=== PATIENT | female | born 1945 | race Hispanic/Latino ===

== ENCOUNTER 2021-09-09 14:11 | Outpatient (CLI) | payer MEDICARE ==
--- NOTE | 2021-09-09 15:43 | XRay Report ---
Thoracic spine, 3 views Lumbar spine, 3 views HISTORY: Back pain COMPARISON: None FINDINGS: Bones/joints: Moderate dextroscoliosis with apex at the thoracolumbar junction. There is compensatory left convex curvature of the lumbar spine with apex at L3. Evaluation of vertebral body height is li mited due to spinal curvature. No definite vertebral body height loss. Posterior vertebral alignment is preserved. Mild/moderate multilevel thoracolumbar degenerative disc disease. Soft tissues/other: Aortoiliac stent graft. Visualized lungs are clear. IMPRESSION: S-shaped scoliotic curvature of the thoracolumbar spine with mild to moderate multilevel thoracolumbar spondylosis. No definite acute abnormality. Signer Name: Liborio Kam MD Signed: 09/09/2021 3:39 PM Workstation Name: [id number] [id number]
== END 2021-09-09 14:12 | disposition home or self-care (01) ==
LOC: SPVIMAG 14:11
PROVIDERS: ATTEND Internal Medicine
DX: M47.815 Spondylosis without myelopathy or radiculopathy, thoracolumbar region (principal); M41.85 Other forms of scoliosis, thoracolumbar region
CPT/HCPCS: 72072; 72100

== ENCOUNTER 2022-07-10 15:53 | Emergency (ER) | payer MEDICARE ==
--- NOTE | 2022-07-10 17:27 | Event Note ---
Date: 07/10/22 Medical screening examination note The patient is a 77-year-old female who was brought to the hospital by EMS with an EMS articulated complaint of painless palpitations. EMS reports that they believe the prehospital EKG shows premature atrial contractions. EMS reports unremarkable vital signs in the field. The patient denies physical pain. The patient is ambulatory in the field. EMS reports unremarkable vital signs. Obtain EKG, appropriate laboratory studies. Detailed history and physical to be performed by myself or oncoming ER provider. Patient awake and alert, oriented, not encephalopathic, mildly anxious, but does not appear to be in any acute distress Vital Signs 07/10/22 16:10 Temperature 97.3 F L Pulse Rate 72 Respiratory 18 Rate Blood Pressure 140/80 [Left] O2 Sat by Pulse 97 Oximetry
[2022-07-10] MEDS ORDERED: MIDAZOLAM 2 MG/2 ML INJ IV ONE (18:18)
--- NOTE | 2022-07-10 18:19 | Emergency Department Report ---
ED General Adult HPI - General Chief complaint: Arrhythmia/Palpitations Stated complaint: PALPITATIONS Time Seen by Provider: 07/10/22 18:11 Source: patient, EMS ( EMS documentation not available at time of chart dictation . Verbal report received from emergency medical services), RN notes reviewed Mode of arrival: Stretcher Limitations: No Limitations - History of Present Illness Initial comments: The patient was evaluated in the emergency department for symptoms described in the history of present illness. He/she was evaluated in the context of the global COVID-19 pandemic, which necessitated consideration that the patient might be at risk for infection with the virus that causes COVID-19. Institutional protocols and algorithms that pertain to the evaluation of patients at risk for COVID-19 are in a state of rapid change based on informat ion released by regulatory bodies including the CDC and federal and state organizations. These policies and algorithms were followed during the patient's care in the emergency department. Please note that these policies, procedures and recommendations changed on a rapid basis. Cardiology: Dr. Song This is a pleasant and cooperative 77-year-old female with a history of known CAD, arrhythmia, hyperlipidemia, hypothyroidism, status post cardiac catheterization in 2013 with an EF of 50 to 55%. The patient presents to the department today with a complaint of anxiety, nervous, shaking, and sensation of intermittent heart racing. She is not having physical pain. The symptoms have been going on for a few weeks. She reports having had outpatient laboratory studies drawn, which demonstrated a potassium of 6.0, and she stated that her oil burner repairer started her on a water pill. She had repeat laboratory studies drawn, which demonstrated a potassium of 5.8. She currently denies headache, neck pain, chest pain, abdominal pain, shortness of breath, nausea, vomiting, diarrhea and dysuria. She denies focal extremity weakness and numbness. She reports that she is very anxious and jittery. An outpatient physician recently started her on benzodiazepines for presumed anxiety. -: week(s) Severity scale (0 -10): 0 Consistency: intermittent Improves with: none Worsens with: none Associated Symptoms: denies other symptoms - Related Data Home Medications Medication Instructions Recorded Confirmed Last Taken Atorvastatin Calcium [Lipitor] 20 mg PO QHS 11/05/13 06/16/14 06/15/14 10 mg Levothyroxine Sodium [Synthroid] 50 mcg PO DAILY 0106/16/14 06/16/14 Clopidogrel Bisulfate [Plavix] 75 mg PO DAILY 05/21/14 06/16/14 06/15/14 Previous Rx's Medication Instructions Recorded Last Taken Type carvediloL [Coreg] 3.125 mg PO BID #60 tablet 10/21/13 06/15/14 Rx ALPRAZolam [Xanax TAB] 0.5 mg PO BID PRN #10 tab 05/21/14 06/14/14 Rx ISOSORBIDE MONOnitrate [Imdur] 30 mg PO QDAY #30 tab.er.24h 06/17/14 Unknown Rx Allergies Allergy/AdvReac Type Severity Reaction Status Date / Time dipyridamole Allergy Unknown Verified 06/16/14 09:09 lansoprazole [From Prevacid] Allergy Hives Verified 06/16/14 09:09 meclizine Allergy Unknown Verified 06/16/14 09:09 meclizine HCl [From Antivert] Allergy Shortness Verified 06/16/14 09:09 of Breath Penicillins Allergy Hives Verified 06/16/14 09:09 Proton Pump Inhibitors Allergy Unknown Verified 06/16/14 09:09 Sulfa (Sulfonamide Allergy Hives Verified 06/16/14 09:09 Antibiotics) Tetanus Vaccines and Toxoid Allergy Shortness Verified 06/16/14 09:09 [Tetanus Vaccines & Toxoid] of Breath Tetracyclines Allergy Hives Verified 06/16/14 09:09 aminophylline AdvReac Unknown Verified 06/16/14 09:09 thallium-201 [Thallium-201] AdvReac Unknown Verified 06/16/14 09:09 clams Allergy Hives Uncoded 11/05/13 07:12 ED Review of Systems ROS: Stated complaint: PALPITATIONS Other details as noted in HPI Comment: All other systems reviewed and negative Cardiovascular: palpitations. denies: chest pain Neurological: denies: weakness Psychiatric: anxiety ED Past Medical Hx - Past Medical History Hx Hypertension: No Hx Heart Attack/AMI: Yes (September 2013) Hx Congestive Heart Failure: No Hx Diabetes: No Hx Deep Vein Thrombosis: No Hx Pulmonary Embolism: No Hx Liver Disease: No Hx Renal Disease: No Hx Sickle Cell Disease: No Hx Arthritis: Yes Hx Kidney Stones: Yes Hx Asthma: No Hx COPD: No Hx Tuberculosis: No Hx HIV: No Additional medical history: Mitral Valve Prolapse, Arrhythmia, hypothyroid, high cholesterol, osteoporosis. ECHO October 2013 - Surgical History Hx Coronary Stent: No Hx Open Heart Surgery: No Hx Pacemaker: No Hx Internal Defibrillator: No Hx Cholecystectomy: No Hx Appendectomy: No Hx Breast Surgery: No Additional Surgical History: Lump removed from Left chest, tonsils removed - Social History Smoking Status: Never Smoker - Medications Home Medications: Home Medications Medication Instructions Recorded Confirmed Last Taken Type carvediloL [Coreg] 3.125 mg PO BID #60 tablet 10/21/13 06/16/14 06/15/14 Rx Atorvastatin Calcium [Lipitor] 20 mg PO QHS 11/05/13 06/16/14 06/15/14 History 10 mg Levothyroxine Sodium [Synthroid] 50 mcg PO DAILY 11/05/13 06/16/14 06/16/14 History ALPRAZolam [Xanax TAB] 0.5 mg PO BID PRN #10 tab 05/21/14 06/16/14 06/14/14 Rx Clopidogrel Bisulfate [Plavix] 75 mg PO DAILY 05/21/14 06/16/14 06/15/14 History ISOSORBIDE MONOnitrate [Imdur] 30 mg PO QDAY #30 tab.er.24h 06/17/14 Unknown Rx ED Physical Exam - General Limitations: No Limitations General appearance: alert, anxious - Head Head exam: Present: atraumatic, normocephalic - Eye Eye exam: Present: normal appearance, EOMI. Absent: nystagmus - ENT ENT exam: Present: normal exam, normal orophraynx, mucous membranes moist, normal external ear exam - Neck Neck exam: Present: normal inspection, full ROM. Absent: tenderness, meningismus - Respiratory Respiratory exam: Present: normal lung sounds bilaterally. Absent: respiratory distress, wheezes, rales, rhonchi, stridor, decreased breath sounds - Cardiovascular Cardiovascular Exam: Present: regular rate, normal rhythm, normal heart sounds. Absent: bradycardia, tachycardia, irregular rhythm, systolic murmur, diastolic murmur, rubs, gallop - GI/Abdominal GI/Abdominal exam: Present: soft. Absent: distended, tenderness, guarding, rebound, rigid, pulsatile mass - Extremities Exam Extremities exam: Present: normal inspection, full ROM, other (2+ pulses noted in the bilateral upper and lower extremities. There is no palpable cord. negative Homans sign. Muscular compartments are soft. The pelvis is stable.). Absent: pedal edema, calf tenderness - Back Exam Back exam: Present: normal inspection, full ROM. Absent: tenderness, CVA tenderness (R), CVA tenderness (L), paraspinal tenderness, vertebral tenderness - Neurological Exam Neurological exam: Present: alert, oriented X3, normal gait, other (No facial droop. Tongue midline. Extraocular movements intact bilaterally. Facial sensation intact to light touch in V1, V2, V3 distribution bilaterally. 5 and a 5 strength in 4 extremities. Sensation intact to light touch in 4 extremities.). Absent: motor sensory deficit - Psychiatric Psychiatric exam: Present: anxious - Skin Skin exam: Present: warm, dry, intact, normal color. Absent: rash ED Course Vital Signs 07/10/22 16:10 Temperature 97.3 F L Pulse Rate 72 Respiratory 18 Rate Blood Pressure 140/80 [Left] O2 Sat by Pulse 97 Oximetry - Reevaluation(s) Reevaluation #1: 07/10/22 19:11 Differential diagnosis, including not limited to: Electrolyte derangement, th yroid derangement, laboratory error, anxiety, mitral valve prolapse Assessment and plan: 77-year-old female, who is afebrile, with reassuring vital signs, with benign and unremarkable physical examination, presenting with a complaint of nonspecific palpitations, generalized shakes, and anxiety. She declined midazolam and Xanax here in the department. Her primary care oil burner repairer recently started her on Lasix, for outpatient potassium levels of 6.0 and 5.8 respectively. Lung sounds are clear, no JVD, and no lower extremity edema. I suspect that this is likely a laboratory error. Her laboratory studies today are essentially unremarkable and nonactionable. Free T4 reviewed and appreciated, TSH within normal limits, patient currently on Synthroid. Patient observed in this department for hours without clinical decompensation. Her EKG is essentially unchanged from prior. She may continue current outpatient medications, with exception of her Lasix, which she may discontinue. Patient asking for food and drink at this time, to take her routine prescription medications. She declined intravenous midazolam and Xanax. I do not feel like these are emergently indicated or necessary at this time. Multiple extensive discussions held with patient and son at the bedside, with patient's consent to discuss the details of her medical care. She may otherwise follow-up with outpatient primary care and cardiology. Return precautions are reviewed. All questions answered. On final reassessment, patient is smiling, endorsing readiness for discharge, understanding of discharge instructions. Suspect anxiety with possible superimposed component of mitral valve prolapse at this time Reevaluation #2: 07/10/22 19:14 I highly doubt acute coronary syndrome. I appreciate the patient's age and cardiovascular risk factor profile. Her symptoms have been going on for weeks. Her EKG is essentially unchanged from prior. Troponin is negative x1 in the context of weeks of symptoms. Therefore, acute SD is ruled out, I would consider this patient suitable to follow-up with her outpatient oil burner repairer ED Medical Decision Making - Lab Data Result diagrams: 07/10/22 17:50 07/10/22 17:50 Vital Signs 07/10/22 16:10 Temperature 97.3 F L Pulse Rate 72 Respiratory 18 Rate Blood Pressure 140/80 [Left] O2 Sat by Pulse 97 Oximetry Lab Results 07/10/22 07/10/22 07/10/22 Range/Units 17:50 17:50 17:50 WBC 7.0 (4.5-11.0) K/mm3 RBC 5.02 (3.65-5.03) M/mm3 Hgb 14.7 H (10.1-14.3) gm/dl Hct 45.1 H (30.3-42.9) % MCV 90 (79-97) fl MCH 29 (28-32) pg MCHC 33 (30-34) % RDW 14.6 (13.2-15.2) % Plt Count 224 (140-440) K/mm3 Lymph % (Auto) 22.2 (13.4-35.0) % Parmer % (Auto) 7.9 H (0.0-7.3) % Eos % (Auto) 1.1 (0.0-4.3) % Baso % (Auto) 0.9 (0.0-1.8) % Lymph # (Auto) 1.6 (1.2-5.4) K/mm3 Parmer # (Auto) 0.6 (0.0-0.8) K/mm3 Eos # (Auto) 0.1 (0.0-0.4) K/mm3 Baso # (Auto) 0.1 (0.0-0.1) K/mm3 Seg Neutrophils % 67.9 (40.0-70.0) % Seg Neutrophils # 4.8 (1.8-7.7) K/mm3 PT 13.0 (12.2-14.9) Sec. INR 0.87 (0.87-1.13) Sodium 139 (137-145) mmol/L Potassium 3.8 (3.6-5.0) mmol/L Chloride 100.1 (98-107) mmol/L Carbon Dioxide 23 (22-30) mmol/L Anion Gap 20 mmol/L BUN 15 (7-17) mg/dL Creatinine 0.7 (0.6-1.2) mg/dL Estimated GFR > 60 ml/min BUN/Creatinine Ratio 21 % Glucose 90 (65-100) mg/dL Calcium 9.5 (8.4-10.2) mg/dL Magnesium 1.80 (1.7-2.3) mg/dL Total Bilirubin 1.30 H (0.1-1.2) mg/dL AST 20 (5-40) units/L ALT 8 (7-56) units/L Alkaline Phosphatase 87 (35-129) units/L Total Creatine Kinase 53 (30-135) units/L Troponin T < 0.010 (0.00-0.029) ng/mL Total Protein 7.3 (6.3-8.2) g/dL Albumin 4.6 (3.9-5) g/dL Albumin/Globulin Ratio 1.7 % TSH (0.270-4.200) mlU/mL Free T4 (0.76-1.46) ng/dL 07/10/22 Range/Units 17:50 WBC (4.5-11.0) K/mm3 RBC (3.65-5.03) M/mm3 Hgb (10.1-14.3) gm/dl Hct (30.3-42.9) % MCV (79-97) fl MCH (28-32) pg MCHC (30-34) % RDW (13.2-15.2) % Plt Count (140-440) K/mm3 Lymph % (Auto) (13.4-35.0) % Parmer % (Auto) (0.0-7.3) % Eos % (Auto) (0.0-4.3) % Baso % (Auto) (0.0-1.8) % Lymph # (Auto) (1.2-5.4) K/mm3 Parmer # (Auto) (0.0-0.8) K/mm3 Eos # (Auto) (0.0-0.4) K/mm3 Baso # (Auto) (0.0-0.1) K/mm3 Seg Neutrophils % (40.0-70.0) % Seg Neutrophils # (1.8-7.7) K/mm3 PT (12.2-14.9) Sec. INR (0.87-1.13) Sodium (137-145) mmol/L Potassium (3.6-5.0) mmol/L Chloride (98-107) mmol/L Carbon Dioxide (22-30) mmol/L Anion Gap mmol/L BUN (7-17) mg/dL Creatinine (0.6-1.2) mg/dL Estimated GFR ml/min BUN/Creatinine Ratio % Glucose (65-100) mg/dL Calcium (8.4-10.2) mg/dL Magnesium (1.7-2.3) mg/dL Total Bilirubin (0.1-1.2) mg/dL AST (5-40) units/L ALT (7-56) units/L Alkaline Phosphatase (35-129) units/L Total Creatine Kinase (30-135) units/L Troponin T (0.00-0.029) ng/mL Total Protein (6.3-8.2) g/dL Albumin (3.9-5) g/dL Albumin/Globulin Ratio % TSH 1.220 (0.270-4.200) mlU/mL Free T4 1.89 H (0.76-1.46) ng/dL - EKG Data -: EKG Interpreted by Ut EKG shows normal: sinus rhythm Rate: normal - EKG Data 07/10/22 18:57 The emergency room EKG is interpreted at 18: 32 This is a sinus rhythm, with a rate of 76 bpm. There is a normal axis, there is a normal P wave axis, and the QTC is prolonged at 5 1 3 ms. There is motion artifact. This is an abnormal EKG. This is not a STEMI. This appears to be grossly unchanged when compared to prior EKG from April 2014, although QTC is slightly prolonged. Next Critical care attestation.: If time is entered above; I have spent that time in minutes in the direct care of this critically ill patient, excluding procedure time. ED Disposition Clinical Impression: Palpitations Disposition: HOME / SELF CARE / HOMELESS Is pt being admited?: No Does the pt Need Aspirin: No Condition: Good Instructions: Palpitations, [id number] Additional Instructions: Patient had essentially unremarkable laboratory studies today, that were not emergently actionable. Specifically, the patient's potassium is 3.8. Her EKG is unchanged from prior. The patient may continue current outpatient medications, but she may discontinue her Lasix. She may continue current outpatient medications otherwise, and follow-up with her outpatient primary care doctor or oil burner repairer within the next 5 to 7 days. Please return to the emergency room right away with new pain, worsened pain, migration of pain, projectile vomiting, change in mental status, confusion, inability tolerate liquid feeds, new, worsened or different symptoms not present on the initial emergency room evaluation Referrals: REX SONG MD [Staff Physician] - 7-10 days
[2022-07-10 18:21] LABS: Basophils # (Auto) 0.1 K/mm3 (0.0-0.1); Basophils % (Auto) 0.9 % (0.0-1.8); Eosinophils # (Auto) 0.1 K/mm3 (0.0-0.4); Eosinophils % (Auto) 1.1 % (0.0-4.3); Hematocrit 45.1 % (30.3-42.9); Hemoglobin 14.7 gm/dl (10.1-14.3); Lymphocytes # (Auto) 1.6 K/mm3 (1.2-5.4); Lymphocytes % (Auto) 22.2 % (13.4-35.0); Mean Corpuscular HGB Conc 33 % (30-34); Mean Corpuscular Volume 90 fl (79-97); Monocytes # (Auto) 0.6 K/mm3 (0.0-0.8); Monocytes % (Auto) 7.9 % (0.0-7.3); Platelet Count 224 K/mm3 (140-440); Red Blood Count 5.02 M/mm3 (3.65-5.03); Red Cell Distribution Width 14.6 % (13.2-15.2)
[2022-07-10 18:27] LABS: INR 0.87 (0.87-1.13)
[2022-07-10 18:45] LABS: Alanine Aminotransferase 8 units/L (7-56); Albumin 4.6 g/dL (3.9-5); Blood Urea Nitrogen 15 mg/dL (7-17); Calcium 9.5 mg/dL (8.4-10.2); Hemolysis Index 7
[2022-07-10 18:47] LABS: BUN/Creatinine Ratio 21
[2022-07-10 18:49] LABS: Free T4 (Free Thyroxine) 1.89 ng/dL (0.76-1.46)
[2022-07-10] MEDS ORDERED: ALPRAZolam 0.25 MG TAB PO ONE (19:04)
[2022-07-10 20:24] VITALS: BP 116/73
--- NOTE | 2022-07-13 09:32 | Electrocardiograph Report ---
[facility] Test Date: 2022-07-10 Test Time: 18:32:26 Pat Name: ARTHUR DUVAL Department: Room: Gender: F Physician Assistant Primary Care: MONTEZ : 1945 Requested By: MOHSEN UMANA Order Number: [id number] Reading MD: Antwon Ulloa Measurements Intervals United Rate: 76 P: 68 [place]: 140 QRS: 47 QRSD: 101 T: 35 QT: 455 QTc: 513 Interpretive Statements Sinus rhythm Left atrial enlargement nonspecific st-t No previous ECG available for comparison Electronically Signed On 07-13-2022 9:32:05 EDT by Antwon Ulloa
== END 2022-07-10 19:20 | disposition home or self-care (01) ==
LOC: ED 15:53
DX: R00.2 Palpitations (principal); I21.9 Acute myocardial infarction, unspecified; N20.0 Calculus of kidney; M19.90 Unspecified osteoarthritis, unspecified site; Z88.6 Allergy status to analgesic agent; Z88.1 Allergy status to other antibiotic agents; Z88.0 Allergy status to penicillin; Z88.7 Allergy status to serum and vaccine; Z91.09 Other allergy status, other than to drugs and biological substances; Z79.899 Other long term (current) drug therapy
CPT/HCPCS: 36415; 80053; 82550; 83735; 84439; 84443; 84484; 85025; 85610; 93005; 99283; 99284